=== PATIENT | male | born 1990 | race African-American/Black ===

== ENCOUNTER 2019-12-19 06:57 | Emergency (ER) | payer OTHER ==
[~2019-12-19] VITALS: Ht 175.3 cm; Wt 83.0 kg
--- NOTE | 2019-12-19 07:05 | NUR ---
PT AMBULATED TO ER BED 7
[2019-12-19 07:12] VITALS: BP 154/107
--- NOTE | 2019-12-19 07:15 | NUR ---
REPORT OBTAINED FROM KRISHNA CARRASCO
--- NOTE | 2019-12-19 07:22 | NUR ---
29 YO MALE C/C OF 9/10 RIGHT FACIAL PAIN X4 DAYS. PT DENIES TRAUMA OR INJURY TO THE SITE. PT TOOK TYLENOL AT HOME WITHOUT RELIEF. DENIES TRAVEL, SOB, COUGH, FEVER. STROKE SYMTOMS ARE NOT PRESENT AT THIS TIME. BILATERAL PERRLA. SIDE RAILS X1. NKA NO MED HX NO RX
--- NOTE | 2019-12-19 07:22 | NUR ---
RECEIVED REPORT FROM KRISHNA CARRASCO FOR CONTINUITY OF CARE
[2019-12-19 07:27] VITALS: BP 154/107
== END 2019-12-19 07:28 | disposition home or self-care (01) ==
LOC: MED 06:57
DX: K04.7 Periapical abscess without sinus (principal)
CPT/HCPCS: 99282